=== PATIENT | female | born 1945 | race African-American/Black ===

== ENCOUNTER 2017-02-07 23:05 | Emergency (ER) | payer OTHER ==
[~2017-02-07] VITALS: Ht 162.6 cm; Wt 87.0 kg
[~2017-02-07 23:05] MED LIST: ALBU8.5H5 INH; BISM262O PO; HYDR-762 PO; IBUP-1542 PO; LOSA25TA5 PO; OLAN5TAB5 PO; OMEP20CA16 PO; ORPH100T PO; TRAM50TA2 PO
[2017-02-07 23:08] VITALS: Ht 162.6 cm; Wt 87.0 kg
[2017-02-08] MEDS ORDERED: hydrALAzine 20 MG INJ IV ONE (00:30)
--- NOTE | 2017-02-08 01:22 | RADRPT ---
PROCEDURE: XR Chest. CLINICAL INDICATION: Headache. TECHNIQUE: Single frontal chest x-ray. COMPARISON: 04/06/2015 FINDINGS: Heart is mildly enlarged.. There are atherosclerotic calcifications of the aortic knob.. No focal i nfiltrate is seen. There is no pleural effusion. There is no pneumothorax. The osseous structures are unremarkable. IMPRESSION: Cardiomegaly. No CHF or infiltrate. RPTAT: HMVK .Scottie Machado MD, MD Date Time Electronically viewed and signed by .Scottie Machado MD, on 02/08/2017 01:22 .K/
[2017-02-08 01:27] LABS: ADD SCAN DIFF NO
[2017-02-08 01:42] LABS: ANION GAP 8 (8-16); BLOOD UREA NITROGEN 11 mg/dl (7-20); CALCIUM 9.1 mg/dl (8.4-10.2); CARBON DIOXIDE 33 mmol/L (21-31); CHLORIDE 100 mmol/L (97-110); CREATININE 0.91 mg/dl (0.44-1.00); GLUCOSE 96 mg/dl (70-220); INR 0.9; POTASSIUM 3.9 mmol/L (3.5-5.1); PROTIME 12.1 Sec (12.2-14.2); PT RATIO 0.9; SODIUM 137 mmol/L (135-144)
[2017-02-08 01:43] LABS: PARTIAL THROMBOPLASTIN TIME 24.2 Sec (25.0-35.0)
--- NOTE | 2017-02-08 01:48 | RADRPT ---
PROCEDURE: CT Brain without contrast. CLINICAL INDICATION: Patient experiencing a headache. TECHNIQUE: A multiplanar CT of the brain was performed on a CT scanner utilizing axial imaging fro m the skull base through the vertex without IV contrast. The CTDIvol is 45.01 mGy and the DLP is 12 0.23 mGycm. One or more of the following dose reduction techniques were utilized: Automated exposu re control, adjustment of the mA and/or kV according to patient size, use of iterative reconstructio n technique. COMPARISON: None FINDINGS: No evidence of intracranial hemorrhage or abnormal extra-axial fluid collection. Encephalomalacia of the right frontal, temporal, and parietal lobes compatible with sequelae of chuy te ischemic MCA territory infarct. Ex vacuo dilatation of the right lateral ventricle. 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 The basal cisterns, posterior fossa contents, brainstem, craniocervical junction, orbits, pituitary axis, paranasal sinuses, mastoid air cells, and calvarium are unremarkable. IMPRESSION: 1. 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 No intracranial hemorrhage, edema, mass effect, or shift. 2. No other acute intracranial abnormality. 3. Early ischemic injury may be occult to CT imaging and diffusion weighted MRI may be considered as clinically warranted. RPTAT:AAJJ Physician Ursula Date Time Electronically viewed and signed by Physician Ursula on 02/08/2017 01:48 COURTNEY/
[2017-02-08 01:59] LABS: TROPONIN-I < 0.012 ng/ml (0.00-0.12)
[2017-02-08] MEDS ORDERED: LORAZEPAM 2 MG INJ ONE (01:59)
[2017-02-08 02:00] LABS: BASOPHILS % 0.7 % (0.0-2.0); EOSINOPHILS # 0.1 10^3/ul (0.0-0.5); EOSINOPHILS % 1.6 % (0.0-7.0); HEMATOCRIT 40.9 % (37.0-47.0); HEMOGLOBIN 12.5 g/dl (12.0-16.0); LYMPHOCYTES # 2.1 10^3/ul (0.8-2.9); MEAN CORPUSCULAR HEMOGLOBIN 27.7 pg (29.0-33.0); MEAN CORPUSCULAR HGB CONC 30.6 g/dl (32.0-37.0); MEAN CORPUSCULAR VOLUME 90.5 fl (82.0-101.0); MEAN PLATELET VOLUME 11.2 fl (7.4-10.4); MONOCYTE # 0.5 10^3/ul (0.3-0.9); MONOCYTES % 9.5 % (0.0-11.0); NEUTROPHIL # 2.8 10^3/ul (1.6-7.5); PLATELET COUNT 211 10^3/UL (140-415); RED BLOOD COUNT 4.52 10^6/ul (4.20-5.40); RED CELL DISTRIBUTION WIDTH 13.6 % (11.5-14.5); WHITE BLOOD COUNT 5.6 10^3/ul (4.8-10.8)
[2017-02-08] MEDS ORDERED: LORAZEPAM 2 MG INJ IV ONE (02:00)
[2017-02-08 02:25] VITALS: TEMP 98.1
[2017-02-08] MEDS ORDERED: morphine 4 MG/ML VIAL IV STA (02:47)
[2017-02-08 03:17] VITALS: BP 165/69; PULSE 94; RESP 18
--- NOTE | 2017-02-08 03:26 | ERD ---
ER Documentation Chief Complaint Date/Time DATE: 02/08/17 TIME: 03:25 Chief Complaint hypertension w/ headache tonight HPI Very pleasant 71-year-old female consequence of headache and high blood pressure over the past 2-3 days. Headache is mild to moderate intensity. No head trauma. No visual acuity changes. Blood pressure elevated over the past 2 -3 days. No fevers or chills. No nausea no vomiting. Nonfocal neurologically. ROS All systems reviewed and are negative except as per history of present illness. Medications Home Meds Active Scripts Ibuprofen* (Motrin*) 600 Mg Tab, 600 MG PO Q6, #30 TAB Prov:PAOLA MICHELLE PA-C 05/27/16 Hydrocodone Bit-Acetaminophen* ([place]*) 10-325 Mg Tablet, 1 TAB PO Q6 Y for PAIN , #12 TAB Prov:PAOLA MICHELLE PA-C 05/27/16 Orphenadrine Citrate (Norflex) 100 Mg Tablet.sa, 100 MG PO BID, #6 TAB.SA Prov:GORGE HECK 04/27/15 Tramadol HCl (Tramadol HCl) 50 Mg Tab, 50 MG PO BID, #6 TAB Prov:GORGE HECK 04/27/15 Bismuth Subsalicylate* (Kaopectate*) 262 Mg/15 Ml Oral.susp, 15 ML PO Q6H Y for DIARRHEA for 5 Days, ML Prov:GORGE HECK 04/27/15 Albuterol Sulfate* (Albuterol Sulfate* HFA) 8.5 Gm Hfa.aer.ad, 1-2 PUFF INH Q4 Y for SHORTNESS OF BREATH, #1 EA Prov:KRIS SWIFT MD 04/07/15 Reported Medications Omeprazole* (Omeprazole*) 20 Mg Capsule.dr, 20 MG PO DAILY, CAP 07/29/14 Olanzapine* (Zyprexa*) 5 Mg Tablet, 5 MG PO DAILY, TAB 07/29/14 Hydrocodone Bit-Acetaminophen* ([place]*) 10-325 Mg Tablet, 1 TAB PO BID Y for PAIN, TAB 07/29/14 Losartan Potassium* (Losartan Potassium*) 25 Mg Tablet, 25 MG PO DAILY, TAB 07/29/14 Allergies Allergies: Coded Allergies: No Known Allergy (Unverified , 04/26/15) PMhx/Soc Medical and Surgical Hx: pt denies Surgical Hx History of Surgery: No Anesthesia Reaction: No Hx Neurological Disorder: Yes (CVA with L sided weakness) Hx Respiratory Disorders: Yes (COPD) Hx Cardiac Disorders: Yes (HTN, high chol) Hx Psychiatric Problems: No Hx Miscellaneous Medical Probl: No Hx Alcohol Use: No Hx Substance Use: No Hx Tobacco Use: No Smoking Status: Former smoker Physical Exam Vitals Vital Signs Date Time Temp Pulse Resp B/P Pulse Ox O2 Delivery O2 Flow Rate FiO2 02/08/17 02:25 98.1 88 14 148/69 98 Room Air 02/08/17 01:27 97.9 67 16 161/89 96 Room Air 02/08/17 00:10 98.1 64 20 173/78 100 Room Air 02/07/17 23:08 98.3 83 20 232/99 98 Physical Exam Const: [] Head: Atraumatic Eyes: Normal Conjunctiva ENT: Normal External Ears, Nose and Mouth. Neck: Full range of motion..~ No meningismus. Resp: Clear to auscultation bilaterally Cardio: Regular rate and rhythm, no murmurs Abd: Soft, non tender, non distended. Normal bowel sounds Skin: No petechiae or rashes Back: No midline or flank tenderness Ext: No cyanosis, or edema Neur: Awake and alert Psych: Normal Mood and Affect Result Diagram: 02/08/17 01102/08/17 0111 Results 24 hrs Laboratory Tests Test 02/08/17 01:11 White Blood Count 5.610^3/ul Red Blood Count 4.5210^6/ul Hemoglobin 12.5g/dl Hematocrit 40.9% Mean Corpuscular Volume 90.5fl Mean Corpuscular Hemoglobin 27.7pg Mean Corpuscular Hemoglobin Concent 30.6g/dl Red Cell Distribution Width 13.6% Platelet Count 44103^3/UL Mean Platelet Volume 11.2fl Neutrophils % 50.0% Lymphocytes % 38.0% Monocytes % 9.5% Eosinophils % 1.6% Basophils % 0.7% Nucleated Red Blood Cells % 0.0/100WBC Neutrophils # 2.810^3/ul Lymphocytes # 2.110^3/ul Monocytes # 0.510^3/ul Eosinophils # 0.110^3/ul Basophils # 0.010^3/ul Nucleated Red Blood Cells # 0.010^3/ul Prothrombin Time 12.1Sec Prothrombin Time Ratio 0.9 INR International Normalized Ratio 0.90 Activated Partial Thromboplast Time 24.2Sec Sodium Level 137mmol/L Potassium Level 3.9mmol/L Chloride Level 100mmol/L Carbon Dioxide Level 33mmol/L Anion Gap 8 Blood Urea Nitrogen 11mg/dl Creatinine 0.91mg/dl Glucose Level 96mg/dl Calcium Level 9.1mg/dl Troponin I < 0.012ng/ml Current Medications Medications (Trade) Dose Ordered Sig/Luisa Route PRN Reason Start Time Stop Time Status Last Admin Dose Admin Hydralazine HCl (Apresoline) 20 mg ONCE ONCE IV 02/08/17 00:30 02/08/17 00:31 DC 02/08/17 01:30 Lorazepam (Ativan) 2 mg STK-MED ONCE .ROUTE 02/08/17 01:59 02/08/17 02:00 DC Lorazepam (Ativan) 1 mg ONCE ONCE IV 02/08/17 02:00 02/08/17 02:11 DC 02/08/17 02:00 Morphine Sulfate (morphine) 4 mg ONCE STAT IV 02/08/17 02:47 02/08/17 02:48 DC 02/08/17 02:57 Procedures/MDM EKG: Rate/Rhythm: Normal Sinus Rhythm QRS, ST, T-waves: No changes consistent w/ acute ischemia Impression: No evidence of ischemia or arrhythmia Chest X-ray 1V Interpreted by me: Soft Tissue: No acute abnormalities Bones: No acute abnormalities Mediastinum/Cardiac Silhouette/Lungs: No acute abnormalities Patient's blood pressure was elevated (>120/80) but appears stable without evidence of hypertension emergency or urgency. The patient was counseled about the risks of hypertension and urged to pursue outpatient monitoring and therapy within a week with their primary care physician. Departure Diagnosis: Primary Impression: Hypertension Hypertension type: essential hypertension Qualified Code: I10 - Essential hypertension Condition: Stable Patient Instructions: High Blood Pressure (Hypertension) DILLON WOODS Feb 08, 2017 03:26
== END 2017-02-08 03:17 | disposition home or self-care (01) ==
LOC: E/R 23:05
DX: I10 Essential (primary) hypertension (principal); J44.9 Chronic obstructive pulmonary disease, unspecified; R40.2142 Coma scale, eyes open, spontaneous, at arrival to emergency department; R40.2252 Coma scale, best verbal response, oriented, at arrival to emergency department; R40.2362 Coma scale, best motor response, obeys commands, at arrival to emergency department; Z87.891 Personal history of nicotine dependence
CPT/HCPCS: 36415; 70450; 71010; 80048; 84484; 85025; 85610; 85730; 93005; 96374; 96375; 99285; J0360; J2060; J2270

== ENCOUNTER 2017-06-19 22:42 | Emergency (ER) | payer OTHER ==
[~2017-06-19] VITALS: Ht 160 cm; Wt 85.5 kg
[2017-06-19 22:45] VITALS: Ht 160 cm; Wt 85.5 kg
[2017-06-19] MEDS ORDERED: SOD CHLORIDE 0.9% 500 ML IV STA (22:47)
[2017-06-19] MEDS ORDERED: ONDANSETRON 4 MG INJ IV STA (22:47)
[2017-06-19 23:39] LABS: BASOPHILS % 0.4 % (0.0-2.0); HEMATOCRIT 42.2 % (37.0-47.0); HEMOGLOBIN 14.2 g/dl (12.0-16.0); LYMPHOCYTES # 1.3 10^3/ul (0.8-2.9); LYMPHOCYTES % 23.8 % (15.0-51.0); MEAN CORPUSCULAR HEMOGLOBIN 29.2 pg (29.0-33.0); MEAN CORPUSCULAR HGB CONC 33.6 g/dl (32.0-37.0); MEAN CORPUSCULAR VOLUME 86.8 fl (82.0-101.0); MEAN PLATELET VOLUME 10.7 fl (7.4-10.4); MONOCYTE # 0.3 10^3/ul (0.3-0.9); MONOCYTES % 4.6 % (0.0-11.0); PLATELET COUNT 227 10^3/UL (140-415); RED BLOOD COUNT 4.86 10^6/ul (4.20-5.40); RED CELL DISTRIBUTION WIDTH 12.4 % (11.5-14.5); WHITE BLOOD COUNT 5.6 10^3/ul (4.8-10.8)
[2017-06-19 23:45] LABS: ALANINE AMINOTRANSFERASE 22 IU/L (13-69); ALBUMIN 3.9 g/dl (3.3-4.9); ALKALINE PHOSPHATASE 89 IU/L (42-121); ANION GAP 13 (8-16); ASPARTATE AMINO TRANSFERASE 17 IU/L (15-46); BILIRUBIN,INDIRECT 0.9 mg/dl (0-1.1); BILIRUBIN,TOTAL 0.9 mg/dl (0.2-1.3); BLOOD UREA NITROGEN 12 mg/dl (7-20); CALCIUM 9.3 mg/dl (8.4-10.2); CARBON DIOXIDE 30 mmol/L (21-31); CHLORIDE 102 mmol/L (97-110); CREATININE 0.84 mg/dl (0.44-1.00); GLUCOSE 133 mg/dl (70-220); POTASSIUM 3.3 mmol/L (3.5-5.1); SODIUM 142 mmol/L (135-144); TOTAL PROTEIN 7.8 g/dl (6.1-8.1)
[2017-06-20] LABS: TROPONIN-I < 0.012 ng/ml (0.00-0.12)
--- NOTE | 2017-06-20 00:03 | RADRPT ---
PROCEDURE: Portable chest x-ray. CLINICAL INDICATION: 71 years of age, Female. Altered level of consciousness. TECHNIQUE: Portable AP view of the chest. COMPARISON: None available. FINDINGS: Cardiomediastinal contours are normal. Decreased lung volumes. Bibasilar atelectasis. Negative for pleural effusion or pneumothorax. No acute bony abnormality. IMPRESSION: Negative for evidence of acute chest process. RPTAT: HCTS Physician Adriana Date Time Electronically viewed and signed by Nickolas Shannon Physician on 06/20/2017 00:03 CS/
[2017-06-20 00:15] LABS: ACETAMINOPHEN < 10.0 ug/ml (10.0-30.0); ETHANOL < 10.0 mg/dl; SALICYLATE < 1.0 mg/dl (5.0-30.0)
--- NOTE | 2017-06-20 00:35 | RADRPT ---
PROCEDURE: CT Brain without contrast. CLINICAL INDICATION: Dizziness. TECHNIQUE: A CT of the brain was performed on a multislice detector CT scanner utilizing axial sec tions from the skull base through the vertex without contrast. Images were reviewed on a [employer] PACS workstation. Exam CTDlvol = 45 mGy and DLP = 720 mGy-cm. One of the following 3 dose red uction techniques were used: Automated exposure control; adjustment of the mA and/or kV according to patient size; or use of iterative reconstruction technique. COMPARISON: 02/08/2017 FINDINGS: There is redemonstrated confluent encephalomalacia in the right middle cerebral artery distribution involving the right frontal lobe, insula and parietal lobes with the dilatation of the adjacent righ t lateral ventricle. There is otherwise age appropriate central and peripheral atrophy. There is no midline shift. There is a moderate degree of supratentorial periventricular and subcortical white matter hypodensities. There is no definite acute stroke. There is no mass lesion. There is no int racranial hemorrhage or abnormal extra-axial fluid collection. There is chronic right maxillary sin us opacification with central calcifications and thickening of the osseous naranjo.. IMPRESSION: 1. No acute intracranial stroke or hemorrhage. 2. Old right middle cerebral artery infarct. 3. Nonspecific white matter changes most commonly seen with microvascular ischemic disease. 4. Chronic right maxillary sinus disease. RPTAT: HMVK .Scottie Machado MD, MD Date Time Electronically viewed and signed by .Scottie Machado MD, MD on 06/20/2017 00:34 .K/
[2017-06-20 01:08] VITALS: TEMP 97.6
[2017-06-20] MEDS ORDERED: hydrALAzine 20 MG INJ IV ONE (02:00)
[2017-06-20] MEDS ORDERED: ONDANSETRON 4 MG INJ IV STA (04:43)
[2017-06-20] MEDS ORDERED: MECLIZINE 12.5 MG TAB PO ONE ×2 (05:00)
--- NOTE | 2017-06-20 05:38 | ERD ---
ER Documentation Chief Complaint Date/Time DATE: 06/20/17 TIME: 05:37 Chief Complaint dizziness with n/v all day. slowed speech. weakness HPI 71-year-old female dizziness and nausea vomiting all day. Patient has in her normal state of health until she feels rested after which he became immediately nauseous and 2-3 episodes of nonbilious vomiting. She also had loose stools today 3-4 times. Grandson at bedside confirms this. No fevers no chills. No blood in stool or blood in vomit. No focal neurological complaints. ROS All systems reviewed and are negative except as per history of present illness. Medications Home Meds Active Scripts Ibuprofen* (Motrin*) 600 Mg Tab, 600 MG PO Q6, #30 TAB Prov:PAOLA MICHELLE PA-C 05/27/16 Hydrocodone Bit-Acetaminophen* ([place]*) 10-325 Mg Tablet, 1 TAB PO Q6 Y for PAIN , #12 TAB Prov:PAOLA MICHELLE PA-C 05/27/16 Orphenadrine Citrate (Norflex) 100 Mg Tablet.sa, 100 MG PO BID, #6 TAB.SA Prov:GORGE HECK 04/27/15 Tramadol HCl (Tramadol HCl) 50 Mg Tab, 50 MG PO BID, #6 TAB Prov:GORGE HECK 04/27/15 Bismuth Subsalicylate* (Kaopectate*) 262 Mg/15 Ml Oral.susp, 15 ML PO Q6H Y for DIARRHEA for 5 Days, ML Prov:GORGE HECK 04/27/15 Albuterol Sulfate* (Albuterol Sulfate* HFA) 8.5 Gm Hfa.aer.ad, 1-2 PUFF INH Q4 Y for SHORTNESS OF BREATH, #1 EA Prov:KRIS SWIFT MD 04/07/15 Reported Medications Omeprazole* (Omeprazole*) 20 Mg Capsule.dr, 20 MG PO DAILY, CAP 07/29/14 Olanzapine* (Zyprexa*) 5 Mg Tablet, 5 MG PO DAILY, TAB 07/29/14 Hydrocodone Bit-Acetaminophen* ([place]*) 10-325 Mg Tablet, 1 TAB PO BID Y for PAIN, TAB 07/29/14 Losartan Potassium* (Losartan Potassium*) 25 Mg Tablet, 25 MG PO DAILY, TAB 07/29/14 Allergies Allergies: Coded Allergies: No Known Allergy (Unverified , 04/26/15) PMhx/Soc History of Surgery: No Anesthesia Reaction: No Hx Neurological Disorder: Yes (CVA with L sided weakness) Hx Respiratory Disorders: Yes (COPD) Hx Cardiac Disorders: Yes (HTN, high chol) Hx Psychiatric Problems: No Hx Miscellaneous Medical Probl: No Hx Alcohol Use: No Hx Substance Use: No Hx Tobacco Use: No Smoking Status: Never smoker Physical Exam Vitals Vital Signs Date Time Temp Pulse Resp B/P Pulse Ox O2 Delivery O2 Flow Rate FiO2 06/20/17 02:49 89 18 147/50 99 Nasal Cannula 2.0 06/20/17 01:08 97.6 71 18 190/90 100 Nasal Cannula 2.0 06/19/17 23:57 Nasal Cannula 2 06/19/17 22:45 98.4 85 16 165/87 98 Physical Exam Const: [] Head: Atraumatic Eyes: Normal Conjunctiva ENT: Normal External Ears, Nose and Mouth. Neck: Full range of motion..~ No meningismus. Resp: Clear to auscultation bilaterally Cardio: Regular rate and rhythm, no murmurs Abd: Soft, non tender, non distended. Normal bowel sounds Skin: No petechiae or rashes Back: No midline or flank tenderness Ext: No cyanosis, or edema Neur: Awake and alert Psych: Normal Mood and Affect Result Diagram: 06/19/17220406/19/172204 Results 24 hrs Laboratory Tests Test 06/19/17 22:05 06/20/17 00:34 White Blood Count 5.610^3/ul Red Blood Count 4.8610^6/ul Hemoglobin 14.2g/dl Hematocrit 42.2% Mean Corpuscular Volume 86.8fl Mean Corpuscular Hemoglobin 29.2pg Mean Corpuscular Hemoglobin Concent 33.6g/dl Red Cell Distribution Width 12.4% Platelet Count 04762^3/UL Mean Platelet Volume 10.7fl Neutrophils % 71.0% Lymphocytes % 23.8% Monocytes % 4.6% Eosinophils % 0.0% Basophils % 0.4% Nucleated Red Blood Cells % 0.0/100WBC Neutrophils # (Manual) 4.010^3/ul Lymphocytes # 1.310^3/ul Monocytes # 0.310^3/ul Eosinophils # 0.010^3/ul Basophils # 0.010^3/ul Nucleated Red Blood Cells # 0.010^3/ul Sodium Level 142mmol/L Potassium Level 3.3mmol/L Chloride Level 102mmol/L Carbon Dioxide Level 30mmol/L Anion Gap 13 Blood Urea Nitrogen 12mg/dl Creatinine 0.84mg/dl Glucose Level 133mg/dl Calcium Level 9.3mg/dl Total Bilirubin 0.9mg/dl Direct Bilirubin 0.00mg/dl Indirect Bilirubin 0.9mg/dl Aspartate Amino Transf (AST/SGOT) 17IU/L Alanine Aminotransferase (ALT/SGPT) 22IU/L Alkaline Phosphatase 89IU/L Troponin I < 0.012ng/ml Total Protein 7.8g/dl Albumin 3.9g/dl Globulin 3.90g/dl Albumin/Globulin Ratio 1.00 Salicylates Level < 1.0mg/dl Acetaminophen Level < 10.0ug/ml Ethyl Alcohol Level < 10.0mg/dl Bedside Glucose 119mg/dL Current Medications Medications (Trade) Dose Ordered Sig/Luisa Route PRN Reason Start Time Stop Time Status Last Admin Dose Admin Sodium Chloride (NS) 500 ml @ 500 mls/hr Q1H STAT IV 06/19/17 22:47 06/19/17 23:46 DC 06/19/17 23:31 Ondansetron HCl (Zofran Inj) 4 mg ONCE STAT IV 06/19/17 22:47 06/19/17 23:24 DC 06/19/17 23:31 Meclizine HCl (Antivert) 25 mg ONCE ONCE PO 06/20/17 00:00 06/20/17 00:01 DC 06/19/17 23:39 Hydralazine HCl (Apresoline) 10 mg ONCE ONCE IV 06/20/17 02:00 06/20/17 02:01 DC 06/20/17 01:53 Ondansetron HCl (Zofran Inj) 4 mg ONCE STAT IV 06/20/17 04:43 06/20/17 04:45 DC 06/20/17 04:51 Meclizine HCl (Antivert) 50 mg ONCE ONCE PO 06/20/17 05:00 06/20/17 05:01 DC Lorazepam (Ativan) 1 mg ONCE ONCE IV 06/20/17 06:00 06/20/17 06:01 Procedures/MDM EKG: Rate/Rhythm: Normal Sinus Rhythm QRS, ST, T-waves: No changes consistent w/ acute ischemia Impression: No evidence of ischemia or arrhythmia Chest X-ray 1V Interpreted by me: Soft Tissue: No acute abnormalities Bones: No acute abnormalities Mediastinum/Cardiac Silhouette/Lungs: No acute abnormalities Medical decision-makin 11-year-old female as well as to be mild vertigo secondary to dehydration from contraction secondary to vomiting. At this point she feels much better to be hydrated. She will be discharged home. Return 8 hours for serial abdominal exams and vomiting. Return sooner for any neurological sequelae. Departure Diagnosis: Primary Impression: Dizziness Condition: Stable DILLON WOODS Jun 20, 2017 05:38
[2017-06-20] MEDS ORDERED: ONDA4TAB14 PO (05:39)
[2017-06-20] MEDS ORDERED: MECL12.574 PO (05:39)
[2017-06-20] MEDS ORDERED: LORAZEPAM 2 MG INJ IV ONE (06:00)
[2017-06-20 09:20] VITALS: BP 140/82; PULSE 80; RESP 20
== END 2017-06-20 09:20 | disposition home or self-care (01) ==
LOC: E/R 22:42
DX: R42 Dizziness and giddiness (principal); R11.2 Nausea with vomiting, unspecified; J44.9 Chronic obstructive pulmonary disease, unspecified; I10 Essential (primary) hypertension
CPT/HCPCS: 36415; 70450; 71010; 80053; 80306; 82962; 84484; 85025; 93005; 96374; 96375; 96376; 99285; J0360; J2060; J2405; J7040

== ENCOUNTER 2017-10-14 19:11 | Observation (INO) | END 2017-10-15 12:00 | disposition left against medical advice (07) ==